=== PATIENT | female | born 1970 | race Caucasian/White ===

== ENCOUNTER 2019-10-04 06:06 | Inpatient (IN) ==
[2019-10-04] MEDS ORDERED: Albuterol 2.5 MG/3 ML NEBULIZER IH PRN (06:27)
[2019-10-04] MEDS ORDERED: CeFAZolin Syr 2,000MG/20 ML 2,000 MG/20 ML SYRINGE IVPB ONE (06:27)
[2019-10-04] MEDS ORDERED: Ringers Solution, Lactated 1,000 ML IVC SCH ×2 (06:30→10:17)
[2019-10-04] MEDS ORDERED: Acetaminophen IV 1,000 MG/100 ML INFUS..BTL IVPB ONE (07:11)
[2019-10-04] MEDS ORDERED: *HR* Promethazine 25 MG/ML VIAL IVP PRN (07:11)
[2019-10-04] MEDS ORDERED: *HR* OxyCODONE Immed Rel 5 MG TABLET PO PRN (07:11)
[2019-10-04] MEDS ORDERED: Ondansetron 4 MG/2 ML VIAL IVP ONE (07:11)
[2019-10-04] MEDS ORDERED: *HR* Meperidine 25 MG/ML SYRINGE IVP PRN (07:11)
[2019-10-04] MEDS ORDERED: Lidocaine -MPF 2% 2 ML VIAL ONE (07:19)
[2019-10-04] MEDS ORDERED: Dexamethasone 4 MG/ML VIAL ONE (07:19)
[2019-10-04] MEDS ORDERED: *HR* Succinylcholine 200 MG/10 ML VIAL IVP ONE (07:19)
[2019-10-04] MEDS ORDERED: Ondansetron 4 MG/2 ML VIAL ONE (07:19)
[2019-10-04] MEDS ORDERED: *HR* Midazolam HCl 2 MG/2 ML VIAL ONE (07:19)
[2019-10-04] MEDS ORDERED: *HR* Propofol 200 MG/20 ML VIAL IVP ONE (07:19)
[2019-10-04] MEDS ORDERED: *HR* Rocuronium Bromide 50 MG/5 ML VIAL ONE (07:19)
[2019-10-04] MEDS ORDERED: *HR* FentaNYL (PF) 100 MCG/2 ML VIAL ONE ×2 (07:19→08:31)
[2019-10-04] MEDS ORDERED: Lidocaine HCL 4 ML Topical Solution (Laryng-O-Jet Kit Sterile Pak) TP ONE (07:21)
[2019-10-04] MEDS ORDERED: Ethanol\\Acetic Acid\\Na Ace\\Ben 1,000 ML IRRIG.SOLN IR ONE (07:27)
[2019-10-04] MEDS ORDERED: Ropivacaine/PF 0.5% 30 ML VIAL ONE (07:46)
[2019-10-04] MEDS ORDERED: *HR* PHENYLEPHRINE 1,000 MCG/10 ML SYRINGE IVP ONE (08:28)
[2019-10-04] MEDS: *HR* HYDROmorphone PF 0.5 MG/0.5 ML SYRINGE IVP PRN ×2 (09:20→09:41)
[2019-10-04 10:03] LABS: Hemoglobin 10.9 g/dL (11.5-15.4)
[2019-10-04] MEDS ORDERED: Ondansetron 4 MG/2 ML VIAL IVP PRN (10:17)
[2019-10-04] MEDS ORDERED: MOM Conc 10 ML UD.LIQ PO PRN (10:17)
[2019-10-04] MEDS ORDERED: Saline Nasal Spray 44 ML BOTTLE NS PRN (10:17)
[2019-10-04] MEDS ORDERED: Dextrose Gel 15 GM/37.5 ML TUBE PO PRN ×2 (10:17)
[2019-10-04] MEDS ORDERED: Insulin DETEMIR 100 UNIT/ML X5UNITS SQ SCH (10:17)
[2019-10-04] MEDS ORDERED: Sennosides 8.6 MG TABLET PO PRN (10:17)
[2019-10-04] MEDS ORDERED: D5% in Water 1,000 ML IVC PRN (10:17)
[2019-10-04] MEDS ORDERED: Naloxone 0.4 MG/ML INJ IVP PRN (10:17)
[2019-10-04] MEDS ORDERED: *HR* Dextrose 50 % in Water (Syg) 50 ML SYRINGE IVP PRN (10:17)
[2019-10-04] MEDS ORDERED: *HR* Metformin 500 MG TABLET PO SCH (10:17)
[2019-10-04] MEDS ORDERED: Insulin LISPRO 300 UNITS/3 ML VIAL SQ SCH ×2 (11:30→21:00)
[2019-10-04] MEDS: ARIPiprazole 10 MG TABLET PO SCH (11:46)
[2019-10-04] MEDS: PARoxetine 20 MG TABLET PO SCH (11:46)
[2019-10-04] MEDS: *HR* OxyCODONE Immed Rel 5 MG TABLET PO PRN ×2 (11:47→17:08)
[2019-10-04] MEDS: Magnesium Oxide 400 MG TABLET PO SCH ×2 (11:47→20:44)
[2019-10-04] MEDS: Gabapentin 300 MG CAPSULE PO SCH ×3 (11:48→20:44)
[2019-10-04] MEDS: Cholecalciferol (D-3) 1,000 UNIT (25MCG) TABLET PO SCH (11:48)
[2019-10-04] MEDS: Insulin DETEMIR 100 UNIT/ML X5UNITS SQ SCH ×2 (11:52→21:00)
[2019-10-04] MEDS: Insulin LISPRO 300 UNITS/3 ML VIAL SQ SCH (17:05)
[2019-10-04] MEDS: ceFAZolin 2,000 MG in 0.9 % Sodium Chloride 100 ML IVPB SCH (17:06)
[2019-10-04] MEDS: *HR* Enoxaparin 30 MG/0.3 ML SYRINGE SQ SCH (17:09)
[2019-10-04] MEDS ORDERED: Fenofibrate 54 MG TABLET PO SCH (18:00)
[2019-10-04] MEDS ORDERED: *HR* Enoxaparin 30 MG/0.3 ML SYRINGE SQ SCH (18:00)
[2019-10-04] MEDS ORDERED: ALPRAZolam 1 MG TABLET PO SCH (18:00)
[2019-10-04] MEDS ORDERED: BuPROPion XL (24 HR) 150 MG TABLET PO SCH (18:00)
[2019-10-04] MEDS: *HR* OxyCODONE/APAP 5/325 TABLET PO PRN (20:44)
[2019-10-05] MEDS: *HR* OxyCODONE Immed Rel 5 MG TABLET PO PRN ×3 (00:38→11:28)
[2019-10-05] MEDS: ceFAZolin 2,000 MG in 0.9 % Sodium Chloride 100 ML IVPB SCH (00:42)
[2019-10-05 03:12] LABS: Hematocrit 31.6 % (35.3-44.9); Hemoglobin 9.9 g/dL (11.5-15.4)
[2019-10-05 03:33] LABS: Calcium 8.6 mg/dL (8.6-10.3); Potassium 4.9 mEq/L (3.5-5.1)
[2019-10-05] MEDS: *HR* Enoxaparin 30 MG/0.3 ML SYRINGE SQ SCH (05:20)
[2019-10-05] MEDS ORDERED: Insulin DETEMIR 100 UNIT/ML X5UNITS SQ SCH (09:00)
[2019-10-05] MEDS: Insulin LISPRO 300 UNITS/3 ML VIAL SQ SCH (09:23)
[2019-10-05] MEDS: Gabapentin 300 MG CAPSULE PO SCH (09:23)
[2019-10-05] MEDS: Magnesium Oxide 400 MG TABLET PO SCH (09:24)
[2019-10-05] MEDS: ARIPiprazole 10 MG TABLET PO SCH (09:24)
[2019-10-05] MEDS: PARoxetine 20 MG TABLET PO SCH (09:24)
[2019-10-05] MEDS: *HR* OxyCODONE/APAP 5/325 TABLET PO PRN (09:24)
[2019-10-05] MEDS: Cholecalciferol (D-3) 1,000 UNIT (25MCG) TABLET PO SCH (09:25)
[2019-10-05 11:52] VITALS: BP 114/64
[2019-10-08] MEDS ORDERED: Cyanocobalamin (B-12) 1,000 MCG/ML VIAL IM SCH (09:00)
== END 2019-10-05 13:05 | disposition home or self-care (01) | DRG 322 ==
LOC: SAMDAY 06:06 → 3NENU 10:12
PROVIDERS: ADMIT Orthopaedic Surgery; ATTEND Orthopaedic Surgery